=== PATIENT | female | born 1960 | race Caucasian/White ===

== ENCOUNTER 2022-06-28 13:16 | Emergency (ER) | payer OTHER, SELFPAY ==
[2022-06-28 13:20] VITALS: BP 148/77; PULSE 91; RESP 16; TEMP 36.4; O2SAT 98
--- NOTE | 2022-06-28 16:18 | ED.GENADULT ---
HPI - General Adult General Date Seen: 06/28/22 Chief complaint: Ear/Nose/Throat Problem Stated complaint: Suspected gland infection, pain in mouth Time Seen by Provider: 06/28/22 14:21 Source: patient History of Present Illness HPI narrative: Patient is a 62-year-old woman who presents for evaluation of teeth pain and an enlarged, painful node in her right neck. She has not had any fevers. She does have a history of a dental abscess in the right lower jaw, but she does not have focal pain there and has not noted any swelling in the jaw per se. She has a dental appointment later this evening, but says she was concerned that if they wanted her to be on antibiotic she would be able to fill that prescription as the pharmacies will be closed by the time she is done. She has not had any other upper respiratory symptoms, congestion, sinus pain, ear pain or sore throat. Related Data Home Medications Medication Instructions Recorded Confirmed No Known Home Medications 06/28/22 06/28/22 Allergies Allergy/AdvReac Type Severity Reaction Status Date / Time Sulfa (Sulfonamide Allergy Mild Verified 06/28/22 13:24 Antibiotics) Review of Systems Status of ROS: Reports: 6 or more systems reviewed and unremarkable except as noted in History and below [facility] Social History Smoking Status: Never smoker Do you use any of these nicotine containing products: None Second hand tobacco smoke exposure: No How often do you have a drink containing alcohol: never How often do you have six or more drinks on one occasion: Never AUDIT-C Alcohol total score: 0 Non-prescribed substance use: denies use Exam Narrative: Exam Narrative: Vital signs reviewed In general, an alert, nontoxic woman. Voice is normal. Head: Normocephalic, atraumatic. Eyes: Sclera clear. ENT: Bilateral TMs are normal. Nares are clear. Dentition is intact, gums are normal, no intraoral lesions. No visible dental abscess. Neck: Supple. She does have a relatively large anterior cervical node on the right, this is mobile and tender to palpation without fluctuance or erythema. No other masses no tracheal tenderness, no enlarged salivary glands. Heart: Regular rate and rhythm. No murmur. Lungs: Clear. No increased work of breathing. Skin: Warm and dry, no rashes or other lesions. Const: Vital Signs, click to edit/add: Vital Signs - 24 hr 06/28/22 13:20 Temperature 97.5 F L Pulse Rate [Right Pulse Oximeter] 91 Respiratory Rate 16 Blood Pressure [Ri ght Upper Arm] 148/77 H Pulse Oximetry 98 Oxygen Delivery Me thod Room Air Documenting provider has reviewed patient's vital signs: yes Course Course Hospital Course: Patient is a generally healthy 62-year-old with what appears to be a reactive node in her neck, source not entirely clear at this time. She may have a dentogenic source but I cannot identify a clear abscess at this time. I did encourage her to follow up with the dentist as planned to see if they can identify a dental problem that needs to be addressed. I did agree to start her on some amoxicillin to cover that. Discussed that right now this appears to be just a standard reactive node, but if nothing is found at the dentist and the no does not resolve over the next month, she should be seen again. Vital Signs Vital signs: Initial Vital Signs Temperature 97.5 F L 06/28/22 13:20 Temperature Source Temporal Artery Scan 06/28/22 13:20 Pulse Rate 91 06/28/22 13:20 Pulse Rhythm 06/28/22 13:20 Pulse Strength 3+ Normal 06/28/22 13:20 Respiratory Rate 16 06/28/22 13:20 Blood Pressure 148/77 H 06/28/22 13:20 Blood Pressure Mean 100 06/28/22 13:20 Blood Pressure Position Sitting 06/28/22 13:20 Pulse Oximetry 98 06/28/22 13:20 Oxygen Delivery Method 06/28/22 13:20 Vital Signs Temperature 97.5 F L 06/28/22 13:20 Pulse Rate 91 06/28/22 13:20 Respiratory Rate 16 06/28/22 13:20 Blood Pressure 148/77 H 06/28/22 13:20 Pulse Oximetry 98 06/28/22 13:20 Oxygen Delivery Method 06/28/22 13:20 Temperature 97.5 F L 06/28/22 13:20 Pulse Rate 91 06/28/22 13:20 Respiratory Rate 16 06/28/22 13:20 Blood Pressure 148/77 H 06/28/22 13:20 Pulse Oximetry 98 06/28/22 13:20 Oxygen Delivery Method 06/28/22 13:20 Discharge Plan Discharge Clinical Impression: Lymphadenitis Patient Disposition: Home, Self-Care Condition: Stable Instructions: Adenitis (ED) Additional Instructions: Follow-up with dentist as planned, antibiotic as prescribed. Ibuprofen or Tylenol as needed for pain. Return for significant facial swelling, redness, high fevers or other worsening. If lymph node swelling is persistent beyond 1 month, follow up with primary care. Prescriptions: No Action No Known Home Medications Follow Up/Referrals: Fleisa Hale DO [Primary Care Provider] - Stand Alone Forms: [facility] Info Instructions
== END 2022-06-28 15:06 | disposition home or self-care (01) ==
LOC: ED 14:49
PROVIDERS: Emergency Provider Emergency Medicine; PCP Family Medicine
DX: I88.9 Nonspecific lymphadenitis, unspecified (principal)
CPT/HCPCS: 99283; 99284

== ENCOUNTER 2024-12-13 12:43 | Outpatient (RCR) | payer OTHER, SELFPAY | END 2025-02-21 12:57 | disposition home or self-care (01) | PROVIDERS: PCP Family Medicine; Visit Provider Physician Assistant | DX: H81.11 Benign paroxysmal vertigo, right ear (principal); Z51.89 Encounter for other specified aftercare | CPT/HCPCS: 97161 ==